=== PATIENT | male | born 1980 | race Caucasian/White ===

== ENCOUNTER 2019-03-22 11:24 | Emergency (ER) | payer MEDICAID ==
[~2019-03-22] VITALS: Ht 175.3 cm; Wt 93.7 kg
--- NOTE | 2019-03-22 12:06 | NUR ---
Pt presents to ED for cough x 7 months. Recently lightheaded/INTERMITTENT CHILLS/VAGAL TYPE EVENTS W/ COUGHING SPELLS. APPEARS WELL, CLEAR LUNGS, VSS
--- NOTE | 2019-03-22 12:07 | NUR ---
XRAY AT BEDSIDE
[2019-03-22] MEDS ORDERED: SODIUM CHLORIDE FLUSH 10ML SYR IVF ONE (12:30)
--- NOTE | 2019-03-22 12:42 | NUR ---
RESTING COMFORTABLY ON GURNEY WITH FURTHER EVAL PATIENT REPORTS SEPSIS FROM FINGER INFECTION X 1 MONTH-TREATED WITH ABX-INFECTION/SEPSIS RESOLVED-HOWEVER COUGH STARTED AND PERSISTED ALSO B/P 190/ - REPORTS HX OF W/ NO TREATMENT PROVIDER MADE AWARE OF HX & B/P WILL CONTINUE TO MONITOR
--- NOTE | 2019-03-22 12:44 | NUR ---
LAB AT BEDSIDE
[2019-03-22] MEDS ORDERED: hydrALAzine 20 MG/ML, 1ML ONE (12:47)
[2019-03-22 12:48] LABS: BASOPHILS # (AUTO) 0.02 x10^3/uL (0-0.1); BASOPHILS % (AUTO) 0 % (0-1); EOSINOPHILS % (AUTO) 1 % (1-7); LYMPHOCYTES # (AUTO) 2.28 x10^3/uL (1-3.4); LYMPHOCYTES % (AUTO) 31 % (22-44); MD NO; MEAN CORPUSCULAR HEMOGLOBIN 30.9 pg (27.5-34.5); MEAN CORPUSCULAR HGB CONC 34.1 g/dL (33.2-36.2); MEAN CORPUSCULAR VOLUME 90.5 fL (81-97); MONOCYTES # (AUTO) 0.63 x10^3/uL (0.2-0.8); MONOCYTES % (AUTO) 9 % (2-9); NEUTROPHILS # (AUTO) 4.26 x10^3/uL (1.8-6.8); NEUTROPHILS % (AUTO) 58 % (42-75); PLATELET COUNT 267 x10^3/uL (130-400); RED BLOOD COUNT 5.52 x10^6/uL (4.38-5.82); RED CELL DISTRIBUTION WIDTH 13.1 % (9.4-14.8)
[2019-03-22 13:00] LABS: ALBUMIN 4.2 g/dL (3.4-5.0); ANION GAP 7 mmol/L (5-15); CALCIUM 9.1 mg/dL (8.5-10.1); CHLORIDE 109 mmol/L (98-107); CREATININE 1.28 mg/dL (0.7-1.3)
[2019-03-22] MEDS ORDERED: hydrALAzine 20 MG/ML, 1ML IV ONE (13:00)
--- NOTE | 2019-03-22 13:05 | NUR ---
PIV PLACED-MEDICATED PER EMAR (HYDALAZINE FOR B/P) NIBP TP Q15, PLACED ON CATHEAD OPERATOR WELL UPDATED ON POC-WILL CONTINUE TO MONITOR
--- NOTE | 2019-03-22 13:11 | NUR ---
CT SCAN AT BEDSIDE
[2019-03-22] MEDS ORDERED: OMNIPAQUE 350 MG/ML, 75ML BOTTLE ONE (13:27)
--- NOTE | 2019-03-22 13:28 | NUR ---
BACK FROM CT SCAN REPEAT VITALS IMPROVED POST HYDALAZINE 120'S/90'S-DOCUMENTED AMBULATED TO RESTROOM W/ NO DIFFICULTY
--- NOTE | 2019-03-22 13:50 | NUR ---
PROVIDER TO BEDSIDE TO EXPLAIN DIAGNOSIS VITALS REMAIN STABLE EDUCATED ON IMPORTANCE OF SMOKING (TOBACCO/MARIJUANA) CESSATION WELL F/U WITH PRIMARY CARE FOR ELVATED BLOOD PRESSURE AND/OR CONTINUED COUGH/CHEST PAIN
[2019-03-22 13:59] VITALS: BP 136/78
== END 2019-03-22 14:09 | disposition home or self-care (01) ==
LOC: ED 13:58
DX: J06.9 Acute upper respiratory infection, unspecified (principal); I10 Essential (primary) hypertension; F17.200 Nicotine dependence, unspecified, uncomplicated
CPT/HCPCS: 36415; 71046; 71260; 80048; 82040; 85025; 93005; 96374; 99284; J0360; Q9967

== ENCOUNTER 2020-09-17 12:38 | Emergency (ER) | payer MEDICAID ==
[~2020-09-17] VITALS: Ht 182.9 cm; Wt 77.5 kg
[2020-09-17] MEDS ORDERED: SODIUM CHLORIDE FLUSH 10ML SYR IVF ONE (13:30)
[2020-09-17 13:41] LABS: BASOPHILS % (AUTO) 1 % (0-1); EOSINOPHILS % (AUTO) 0 % (1-7); LYMPHOCYTES % (AUTO) 15 % (22-44); MD NO; MEAN CORPUSCULAR HEMOGLOBIN 30.2 pg (27.5-34.5); MEAN CORPUSCULAR HGB CONC 34.6 g/dL (33.2-36.2); MEAN PLATELET VOLUME 7.8 fL (7.4-10.4); MONOCYTES % (AUTO) 7 % (2-9); NEUTROPHILS % (AUTO) 77 % (42-75); PLATELET COUNT 312 x10^3/uL (130-400); RED BLOOD COUNT 5.44 x10^6/uL (4.38-5.82); RED CELL DISTRIBUTION WIDTH 13.2 % (9.4-14.8)
[2020-09-17 13:49] LABS: ALANINE AMINOTRANSFERASE 23 U/L (12-78); ALBUMIN 4.3 g/dL (3.4-5.0); ANION GAP 7 mmol/L (5-15); CALCIUM 9.2 mg/dL (8.5-10.1); CHLORIDE 107 mmol/L (98-107); CREATININE 1.19 mg/dL (0.7-1.3)
[2020-09-17 13:53] LABS: ALKALINE PHOSPHATASE 87 U/L (45-117); BILIRUBIN,TOTAL 0.7 mg/dL (0.2-1.0); TOTAL PROTEIN 7.8 g/dL (6.4-8.2); TROPONIN I < 0.015 ng/mL (0.000-0.045)
--- NOTE | 2020-09-17 14:21 | NUR ---
SPOKE W/ LOIS BERGER AT 2:10PM; PT HAS COVID SYMPTOMS AND STILL IN WAITING ROOM; EXAM CANNOT BE DONE IN ULTRASOUND ROOM DUE TO COVID, ROOM WOULD HAVE TO BE QUARENTENED AND CLEANED, WOULD CAUSE MAJOR DELAYS ON OTHER EXAMS; WAITING ON PT TO GET ROOM IN ER
--- NOTE | 2020-09-17 16:20 | NUR ---
4:20PM PT STILL HAS NO ROOM ASSIGNED
[2020-09-17] MEDS ORDERED: CEPHALEXIN 500 MG CAPSULE ONE (17:45)
[2020-09-17] MEDS ORDERED: SULFAMETH./TRIMETHOPRIM DS 800MG/160MG TABLET ONE (17:45)
[2020-09-17] MEDS ORDERED: CEPHALEXIN 500 MG CAPSULE PO ONE (18:00)
[2020-09-17] MEDS ORDERED: SULFAMETH./TRIMETHOPRIM DS 800MG/160MG TABLET PO ONE (18:00)
[2020-09-17 18:01] VITALS: BP 118/73
== END 2020-09-17 18:03 | disposition home or self-care (01) ==
LOC: ED 14:35
DX: U07.1 COVID-19 (principal); R06.02 Shortness of breath; L03.116 Cellulitis of left lower limb; I10 Essential (primary) hypertension; F17.200 Nicotine dependence, unspecified, uncomplicated
CPT/HCPCS: 36415; 71045; 80053; 84484; 85025; 87040; 87635; 93005; 99285

== ENCOUNTER 2021-04-22 13:30 | Emergency (ER) | payer MEDICAID ==
[~2021-04-22] VITALS: Ht 175.3 cm; Wt 80.5 kg
--- NOTE | 2021-04-22 14:17 | NUR ---
RECEIVED REPORT FROM DAHIANA JOHNSON, ASSUMING CARE OF PT
[2021-04-22] MEDS ORDERED: DEXAMETHASONE 4 MG/ML, 1ML PO ONE (15:00)
--- NOTE | 2021-04-22 15:06 | NUR ---
PT SITTING IN [facility], DENIES ANY NEED. REG [place]. UPDATED ON POC. CALL LIGHT W/IN REACH.
[2021-04-22] MEDS ORDERED: DEXAMETHASONE 4 MG TABLET ONE (15:09)
--- NOTE | 2021-04-22 15:19 | NUR ---
XRAY BEDSIDE NOW
[2021-04-22 15:26] VITALS: BP 112/72
--- NOTE | 2021-04-22 15:28 | NUR ---
PT MEDICATED PER DEC, TRACEY COLLECTED AND WALKED DOWN TO LAB. FRANCINE, REG. CALL LIGHT W/IN REACH.
--- NOTE | 2021-04-22 15:55 | NUR ---
WENT TO LET PT KNOW HE WILL BE DC, HE STATES, "NONE OF MY CONCERNS HAVE BEEN ADDRESSED I AM IN PAIN AND NOTHING HAS BEEN GIVEN FOR PAIN." I LET HIM KNOW THAT HIS PAIN IS FROM THE THROAT AND SWELLING AND WE MEDICATED HIM FOR THAT. HE STATES "IM NOT LEAVING UNTIL I SEE A DOCTOR." THEO'Crystal FISCHER SEE PT PRIOR TO DC.
--- NOTE | 2021-04-22 16:21 | NUR ---
Patient given discharge instructions and they have confirmed that they understand the instructions. Patient ambulatory with steady gait. Number provided so pt can call for results of COVID.
== END 2021-04-22 16:22 | disposition home or self-care (01) ==
LOC: ED 16:15
DX: J06.9 Acute upper respiratory infection, unspecified (principal); R06.02 Shortness of breath; J00 Acute nasopharyngitis [common cold]; Z20.822 Contact with and (suspected) exposure to COVID-19; I10 Essential (primary) hypertension; Z87.891 Personal history of nicotine dependence
CPT/HCPCS: 71045; 99284; J1100; U0003; U0005